=== PATIENT | female | born 1990 | race Caucasian/White ===

== ENCOUNTER 2017-08-20 15:26 | Emergency (ER) | payer SELFPAY ==
[2017-08-20] MEDS ORDERED: METOCLOPRAMIDE 10 MG/2 ML VIAL ONE (16:14)
[2017-08-20] MEDS ORDERED: SODIUM CHLORIDE 0.9% 1000ML 1,000 ML IV ONE (16:14)
[2017-08-20 16:26] LABS: APPEARANCE,URINE Cloudy (CLEAR); BILIRUBIN,URINE Negative (NEGATIVE); COLOR,URINE Yellow (YELLOW); GLUCOSE, URINE (UA) Negative (NEGATIVE); KETONES,URINE Negative (NEGATIVE); LEUKOCYTE ESTERASE ,URINE Large (NEGATIVE); NITRATE,URINE Negative (NEGATIVE); OCCULT BLOOD,URINE Large (NEGATIVE); PROTEIN,URINE Negative (NEGATIVE); UROBILINOGEN,URINE 0.2 mg/dL (0.2-1.0)
[2017-08-20 16:35] LABS: HCG,QUAL RESULT NEGATIVE (NEGATIVE)
[2017-08-20] MEDS ORDERED: KETOROLAC TROMETHAMINE 30MG/ML ONE (16:43)
[2017-08-20 17:15] LABS: BACTERIA,URINE Few /HPF (None Seen); SQUAMOUS EPITHELIAL CELL,UR Few /LPF (0-2)
== END 2017-08-20 17:35 | disposition home or self-care (01) ==
LOC: EDH 15:26
DX: R51 Headache (principal); N39.0 Urinary tract infection, site not specified
CPT/HCPCS: 81001; 81025; 96361; 96374; 96375; 99284; J1885; J2765; J7030

== ENCOUNTER 2018-02-01 14:42 | Emergency (ER) | payer SELFPAY | END 2018-02-01 14:59 | disposition home or self-care (01) | LOC: EDH 14:42 | DX: H92.02 Otalgia, left ear (principal) | CPT/HCPCS: 99281 ==

== ENCOUNTER 2022-05-01 23:04 | Emergency (ER) | payer MEDICAID ==
[~2022-05-01] VITALS: Ht 160 cm; Wt 72.6 kg
[2022-05-01] MEDS ORDERED: KETOROLAC 30MG VIAL (30MG/ML) IM ONE (23:30)
[2022-05-01] MEDS ORDERED: DiphenhydrAMINE HCL 50 MG/ML VIAL IV ONE (23:30)
[2022-05-01] MEDS ORDERED: METOCLOPRAMIDE 10 MG/2 ML VIAL IM ONE (23:30)
[2022-05-02 00:44] VITALS: BP 125/71
== END 2022-05-02 01:04 | disposition home or self-care (01) ==
LOC: EDH 23:04
DX: G43.909 Migraine, unspecified, not intractable, without status migrainosus (principal)
CPT/HCPCS: 99284; 96374; 96372 ×2; J1200; J1885; J2765

== ENCOUNTER → 2023-06-10 | Outpatient (CLI) | payer MEDICAID | END | disposition home or self-care (01) | LOC: RAH 11:05 | PROVIDERS: ATTEND Internal Medicine Gastroenterology | DX: R68.81 Early satiety (principal); R14.0 Abdominal distension (gaseous) | CPT/HCPCS: 78264; A9541 ==